=== PATIENT | female | born 1950 | race Caucasian/White ===

== ENCOUNTER → 2022-06-25 12:55 | Outpatient (CLI) | payer MEDICARE, OTHER, SELFPAY ==
--- NOTE | 2022-06-25 | DI.RAD.S_ITS ---
PROCEDURE: FL BARIUM SWALLOW W SPEECH INDICATIONS: DYSPHAGIA COMPARISON: None. TECHNIQUE: Examination was conducted in conjunction with speech pathology per standard protocol. In the lateral projection, filming was performed of the patient swallowing. AP projection filming may also be performed with patient swallowing. COMPARISON: FINDINGS: Function: The oral preparatory phase appears normal, with proper containment. The subsequent oral propulsive phase, pharyngeal phase, and esophageal phase of swallowing also appear normal with all proffered substances. Trace layringeal penetration without aspiration. No pathologic vallecular pooling. Mild esophageal dysmotility. Morphology: No cricopharyngeal bar is identified. No cervical esophageal webs. No Zenker's diverticulum. No strictures. IMPRESSION: 1. Trace laryngeal penetration without eft position. 2. Mild esophageal dysmotility. 3. Please see separate speech pathologist's report. Dictated by: Joaquim Viera M.D. on 06/27/2022 at 8:10 Approved by: Joaquim Viera M.D. on 06/27/2022 at 8:13
--- NOTE | 2022-06-27 13:37 | ST.SWALLOW ---
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 Sykes Reason for Referral dysphagia Setting Setting Outpatient Care Patient Information Identification Type Name,Date of Patient History pt was seen for a Modified barium Swallow Study (MBSS) at the referral pf Dr. Sykes. According to the pt, he experienced difficulty swallowing approximately 2-3 months ago. He described it as not being able to swallow liquids, solids and his saliva . He reported feeling as though the foods would not go into the esophagus, or would be regurgitated back into his mouth to try swallowing again. The pt noted that this has improved recently and he is not really having difficulty with swallowing. Pt did report that about one year go, he was diagnosed with Myasthenia Gravis. Subjective Observations Pt was seated in the fluoroscopy chair. Procedures and instructions were described for the pt after which he agreed to proceed. Pt appeared to be [place], wearing bilateral hearing aids. [ End ] Patient Positioning Position View Lat-A/P Imaging Textures Administered Trials Presented Thin Liquid via Spoon (IDDSI 0 ),Thin Liquid via Cup (IDDSI 0 ),Extremely Thick Liquid via Spoon (IDDSI 4),Puree (IDDSI 4 ),Regular (IDDSI 7) Barium Tablet Yes Oral Impairment Source: The Modified Barium Swallow Impairment Profile (MBSImP??) Lip Closure No labial escape Tongue Control During Bolus Hold Posterior escape of less than half of bolus Bolus Preparation/Mastication Timely & efficient chewing & mashing Bolus Transport/Lingual Motion Delayed initiation of tongue motion Oral Residue Residue collection on oral structures Location Lateral sulci Initiation of Pharyngeal Swallow Bolus head at pyriforms Additional Oral Impairment Observations OME was WNL for form and function. DKS was also normal. ORAL PHASE: Premature spillage og the bolus head to the pyriform sinuses was observed across all trials indicating bolus control difficulty. mastication was adequate with a rotary chew. Pharyngeal Impairment Source: The Modified Barium Swallow Impairment Profile (MBSImP??) Soft Palate Elevation No bolus between soft palate & pharyngeal wall Laryngeal Elevation Part.sup.move.thyroid cart/ part.approx.arytenoids to epiglot.petiole Anterior Hyoid Excursion Partial anterior movement Epiglottic Movement Partial inversion Laryngeal Vestibular Closure Incomplete; narrow column air/ contrast in laryngeal vestibule Pharyngeal Stripping Wave Present - diminished Pharyngoesophageal Segment Opening Minimal distension/minimal duration; marked obstruction of flow Tongue Base Retraction Wide column of contrast/air between tongue base & post. pharyngeal wall Pharyngeal Residue Collection of residue within/ on pharyngeal structures Location Diffuse (>3 areas) Additional Pharyngeal Impairment Base of tongue weakness Observations negatively impacted hyolaryngeal elevation and movement. Reduced epiglottic inversion was noted with flash penetration (x3) into the laryngeal vestibule for trials larger than a teaspoonful. Posterior pharyngeal wall stripping wave was diminished for the medial and inferior pharyngeal contractors, resulting in reduced bolus control. Osteophytes were noted at C4-C5 near the pharyngoesophageal opening, limiting the distention and and duragtion of the opening. For the semisolid and solid trials, the pt needed up to 10 swallow attempts per bolus trial. The distortion within the esophagus by the osteophytes resulted in esophopharyngal back flow into the pharynx with each subsequent swallow attempt. Several swallow attempts with water were needed in order to clear the pharynx. Textures Administered Trials Presented Thin Liquid via Spoon (IDDSI 0 ) A/P View Observations Pharyngeal Contraction Complete Esophageal Clearance Upright Position Esophageal retention w/ regtrograde flow below pharyngoesoph segment Vocal Fold Function Good Esophageal Function Slowed Clearing,Poor Motility, Reverse Peristalsis,Stasis, Narrowing Additional A-P Observations The esophageal swallowing phase indicated dysmotility with slowed emptying, stasis, esophageal narrowing and reverse parastalsis. Pt reported that he has the greatest difficulty with breads, dry foods (has dry Cheerios in the morning with his coffee), and meats. Clinical Impressions Dysphagia Type Pharyngeal,Esophageal Findings Pt reported difficulty with swallowing approximately 2-3 months ago that has improved recently. The results of the MBSS indicate pharyngoesophageal dysphagia characterized by overall weakness of the pharyngeal structures reducing overall bolus control and cleaance, restricted opening of the PES, osteophytes (C4-C5) that appear to both impede bolus flow into/through the PES requiring multiple attempts to swallow a bolus. Finally, reduced esophageal dysmotility was observed with delayed clearance of the esophagus noted. Pt did note a sensation of globus. Rehabilitation Potential Good Patient Appropriate for Therapy Yes: pt/ declined Diet Liquids Order Thin (IDDSI 0) Diet Order Easy to Chew (IDDSI 7) Medication Recommendation As Tolerated,Whole in Carrier, Crushed in Carrier Aspiration Precautions Recommended Precautions Alternate Liquids/Solids,Small Bites/Sips Additional Precautions Chew foods well; mindful swallowing Treatment Plan Therapy Recommendations Outpatient Speech Therapy,Base of Tongue Exercises Recommended Referrals GI Consult Additional Recommended Referrals added moisture to soldid foods to aid in passage through the PES Therapy Strategy Recommendations Small Bites and Sips,Alternate Liquids/Solids Additional Recommendations/Comments Discussed dysphagia treatment with pt and his to increase linguapharyngeal strength Referral to GI re: PES opening restrictions Lateral View The IDDSI Framework Protocol: IDDSI.1 A/P View The IDDSI Framework Protocol: IDDSI.1 Recommendations
== END ==
PROVIDERS: PCP Family Medicine; Referring Provider Family Medicine; Visit Provider Family Medicine
DX: K22.4 Dyskinesia of esophagus (principal); R13.10 Dysphagia, unspecified
CPT/HCPCS: 74230; 92611